=== PATIENT | female | born 1960 | race Caucasian/White ===

== ENCOUNTER 2017-11-27 10:23 | Emergency (ER) | payer MEDICARE, BC, OTHER ==
[2017-11-27 11:44] LABS: BASO # 0.1 10^3/uL (0.0-0.2); BASO % 0.9 % (0.0-1.0); EOS # 0.1 10^3/uL (0.0-0.50); EOS % 2.5 % (0.0-3.0); HEMATOCRIT 43.1 % (36.0-47.0); HEMOGLOBIN 15.3 g/dl (12.0-16.0); IMMATURE GRANULOCYTE % 0.2 % (0-3.0); LYMPH # 2.8 10^3/uL (1.5-4.5); LYMPH % 50.4 % (24.0-44.0); MEAN CORPUSCULAR HEMOGLOBIN 32.3 pg (27.0-33.0); MEAN CORPUSCULAR HGB CONC 35.5 g/dl (32.0-36.5); MEAN CORPUSCULAR VOLUME 90.9 fl (80.0-96.0); MONO # 0.4 10^3/uL (0.0-0.8); MONO % 7.1 % (0.0-5.0); NEUTROPHILS # 2.2 10^3/uL (1.8-7.7); NEUTROPHILS % 38.9 % (36.0-66.0); PLATELET COUNT, AUTOMATED 204 10^3/uL (150-450); RED BLOOD COUNT 4.74 10^6/uL (4.00-5.40); RED CELL DISTRIBUTION WIDTH 11.8 % (11.5-14.5); WHITE BLOOD COUNT 5.6 10^3/uL (4.0-10.0)
[2017-11-27] MEDS: NS 1,000 ML IV (11:45)
[2017-11-27] MEDS ORDERED: ONDANSETRON 4MG/2ML VIAL (J2405) IV (11:45)
[2017-11-27 11:56] LABS: ANION GAP 8 MEQ/L (8-16); BLOOD UREA NITROGEN 10 MG/DL (7-18); CALCIUM LEVEL 8.8 MG/DL (8.5-10.1); CARBON DIOXIDE LEVEL 26 MEQ/L (21-32); CHLORIDE LEVEL 108 MEQ/L (98-107); CPK CREATINE PHOSPHOKINASE 64 U/L (26-192); CREATININE FOR GFR 0.64 MG/DL (0.55-1.30); GLOMERULAR FILTRATION RATE > 60.0 (>51); GLUCOSE, FASTING 93 MG/DL (70-100); MB/CK RELATIVE INDEX 1.56 (< OR =4); POTASSIUM SERUM 3.8 MEQ/L (3.5-5.1); SODIUM LEVEL 142 MEQ/L (136-145); TROPONIN I < 0.02 NG/ML (< 0.10)
[2017-11-27] MEDS: KETOROLAC 30 MG/ML VIAL (J1885) IV (12:13)
[2017-11-27 12:25] LABS: INFLUENZA A AMPLIFICATION NEGATIVE (NEGATIVE); INFLUENZA B AMPLIFICATION NEGATIVE (NEGATIVE)
== END 2017-11-27 13:22 | disposition home or self-care (01) ==
LOC: M ED 10:23
DX: M79.1 Myalgia (principal); B09 Unspecified viral infection characterized by skin and mucous membrane lesions; E06.2 Chronic thyroiditis with transient thyrotoxicosis; F41.9 Anxiety disorder, unspecified; K58.9 Irritable bowel syndrome, unspecified; Z79.01 Long term (current) use of anticoagulants; Z79.82 Long term (current) use of aspirin; Z79.899 Other long term (current) drug therapy; Z88.5 Allergy status to narcotic agent; Z87.42 Personal history of other diseases of the female genital tract; Z98.890 Other specified postprocedural states; Z95.5 Presence of coronary angioplasty implant and graft; Z87.891 Personal history of nicotine dependence
CPT/HCPCS: J1885

== ENCOUNTER 2017-12-03 17:20 | Emergency (ER) | payer MEDICARE, BC, OTHER ==
[2017-12-03 18:14] LABS: BASO % 0.6 % (0.0-1.0); EOS # 0.1 10^3/uL (0.0-0.50); HEMOGLOBIN 14.1 g/dl (12.0-16.0); IMMATURE GRANULOCYTE % 0.1 % (0-3.0); LYMPH % 43.7 % (24.0-44.0); MEAN CORPUSCULAR HGB CONC 35.3 g/dl (32.0-36.5); MEAN CORPUSCULAR VOLUME 90.9 fl (80.0-96.0); MONO # 0.4 10^3/uL (0.0-0.8); MONO % 6.1 % (0.0-5.0); NEUTROPHILS # 3.3 10^3/uL (1.8-7.7); NEUTROPHILS % 48.5 % (36.0-66.0); PLATELET COUNT, AUTOMATED 216 10^3/uL (150-450); RED CELL DISTRIBUTION WIDTH 11.7 % (11.5-14.5); WHITE BLOOD COUNT 6.8 10^3/uL (4.0-10.0)
[2017-12-03] MEDS: NITROGLYCERIN 0.4 MG SUBL TABLET SL ×2 (18:23→18:33)
[2017-12-03 18:39] LABS: ALBUMIN/GLOBULIN RATIO 1.18 (1.00-1.93); ALKALINE PHOSPHATASE 86 U/L (45-117); ALT/SGPT 30 U/L (12-78); ANION GAP 8 MEQ/L (8-16); AST/SGOT 18 U/L (7-37); BILIRUBIN,DIRECT < 0.1 MG/DL (0.0-0.2); BILIRUBIN,TOTAL 0.3 MG/DL (0.2-1.0); BLOOD UREA NITROGEN 11 MG/DL (7-18); CALCIUM LEVEL 8.4 MG/DL (8.5-10.1); CARBON DIOXIDE LEVEL 27 MEQ/L (21-32); CHLORIDE LEVEL 106 MEQ/L (98-107); CPK CREATINE PHOSPHOKINASE 64 U/L (26-192); CREATININE FOR GFR 0.68 MG/DL (0.55-1.30); GLOMERULAR FILTRATION RATE > 60.0 (>51); GLUCOSE, FASTING 96 MG/DL (70-100); LIPASE 239 U/L (73-393); MB/CK RELATIVE INDEX 1.56 (< OR =4); POTASSIUM SERUM 3.6 MEQ/L (3.5-5.1); SODIUM LEVEL 141 MEQ/L (136-145); TOTAL PROTEIN 7.4 GM/DL (6.4-8.2); TROPONIN I 0.02 NG/ML (< 0.10)
[2017-12-03 19:02] LABS: INR 1.13; PROTHROMBIN TIME 14.7 SECONDS (12.4-14.5)
[2017-12-03 19:03] LABS: PARTIAL THROMBOPLASTIN TIME 34.2 SECONDS (26.8-37.9)
[2017-12-03] MEDS ORDERED: ISOVUE-370 76% 100ML VIAL (Q9967) As Ordered (19:06)
[2017-12-04 00:16] LABS: CPK CREATINE PHOSPHOKINASE 61 U/L (26-192); TROPONIN I 0.05 NG/ML (< 0.10)
[2017-12-04] MEDS: MORPHINE 4 MG/ML 1ML VIAL (J2270) IV (00:16)
[2017-12-04 00:17] LABS: MB/CK RELATIVE INDEX 1.63 (< OR =4)
[2017-12-04] MEDS: CLOPIDOGREL 300 MG TAB (PLAVIX) PO (00:34)
[2017-12-04] MEDS: HEPARIN SOD (PORCINE) 5000 UNITS/ML VIAL IV (00:34)
[2017-12-04] MEDS: HEPARIN DRIP 25,000 UNITS in APPROPRIATE DILUENT 1 EA IV (00:35)
[2017-12-04] MEDS ORDERED: MORPHINE 4 MG/ML 1ML VIAL (J2270) IV (00:45)
[2017-12-04] MEDS ORDERED: NITROGLYCERIN 2% OINT 1 GM *U/D* PKT TOP (01:00)
== END 2017-12-04 01:29 | disposition short-term general hospital (02) ==
LOC: M ED 17:20
DX: I20.0 Unstable angina (principal); I10 Essential (primary) hypertension; G40.909 Epilepsy, unspecified, not intractable, without status epilepticus; Z79.890 Hormone replacement therapy; Z79.82 Long term (current) use of aspirin; Z79.01 Long term (current) use of anticoagulants; Z79.899 Other long term (current) drug therapy; Z88.8 Allergy status to other drugs, medicaments and biological substances; Z95.5 Presence of coronary angioplasty implant and graft; Z98.890 Other specified postprocedural states; Z87.891 Personal history of nicotine dependence; Z85.828 Personal history of other malignant neoplasm of skin
CPT/HCPCS: J2270

== ENCOUNTER 2019-01-06 18:19 | Emergency (ER) | payer MEDICARE, BC, OTHER ==
[~2019-01-06] VITALS: Ht 160 cm; Wt 53.0 kg
[2019-01-06 18:19] VITALS: BP 134/76
[~2019-01-06 18:19] MED LIST: /AMIO20TA OR; ALBUTEROL INH; AMIT25TA PO; ASPI81TA45 OR; ASPI81TA85 PO; CELE20TA PO; COLA100C2 OR; CRES20TA PO; FAMO20TA PO; HYDR-3363 PO; ISOS120T4 PO; LORA1TAB OR; METO-346 PO; METOPROLOL TARTATE; MIRALEX OR; MULTIVIT OR; NEUR100C PO; OMEP20TA7 OR; PLAV1TAB2 PO; PLAV75TA2 OR; PRAV20TA2 OR; RANE1000 PO; TRAM50TA2 PO; VITMTA PO; [UNRECOGNIZED DRUG - CODE] PO; ferrous gluconate; ranexa; symbicort
[2019-01-06] MEDS ORDERED: OXYC1TAB15 PO (19:04)
[2019-01-06] MEDS ORDERED: CAPS0.022 TOP (19:04)
[2019-01-06] MEDS ORDERED: GABA-843 PO (19:04)
[2019-01-06] MEDS ORDERED: VALA1TAB2 PO (19:04)
[2019-01-06] MEDS ORDERED: valACYclovir HCL 500 MG TAB PO ONE (19:15)
[2019-01-06] MEDS ORDERED: PERCOCET 5MG/325MG TAB PO ONE (19:15)
[2019-01-06] MEDS ORDERED: GABAPENTIN 300 MG CAP PO ONE (19:15)
== END 2019-01-06 19:27 | disposition home or self-care (01) ==
LOC: M ED 18:19
DX: M79.2 Neuralgia and neuritis, unspecified (principal); R51 Headache; L98.9 Disorder of the skin and subcutaneous tissue, unspecified; E06.3 Autoimmune thyroiditis; K21.9 Gastro-esophageal reflux disease without esophagitis; K58.9 Irritable bowel syndrome, unspecified; I25.10 Atherosclerotic heart disease of native coronary artery without angina pectoris; R56.9 Unspecified convulsions; Z95.1 Presence of aortocoronary bypass graft; Z79.899 Other long term (current) drug therapy; Z79.82 Long term (current) use of aspirin; Z88.6 Allergy status to analgesic agent; F17.210 Nicotine dependence, cigarettes, uncomplicated

== ENCOUNTER 2019-04-21 18:27 | Emergency (ER) | payer MEDICARE, BC, OTHER ==
[~2019-04-21] VITALS: Ht 160 cm; Wt 53.0 kg
[~2019-04-21 18:27] MED LIST changes: -/AMIO20TA OR; +AMIO1TAB OR; +CAPS0.022 TOP; -CRES20TA PO; +CRES20TA2 PO; +GABA-843 PO; -ISOS120T4 PO; +ISOS120T7 PO; +OXYC1TAB15 PO; +VALA1TAB2 PO; +[UNRECOGNIZED DRUG - CODE] PO; -[UNRECOGNIZED DRUG - CODE] PO
[2019-04-21] MEDS ORDERED: NS 1,000 ML IV SCH (18:32)
[2019-04-21] MEDS ORDERED: NITROGLYCERIN 0.4 MG SUBL TABLET SL PRN (18:45)
[2019-04-21 18:54] LABS: BASO # 0.2 10^3/uL (0.0-0.2); BASO % 2.4 % (0.0-1.0); EOS # 0.2 10^3/uL (0.0-0.50); EOS % 2.1 % (0.0-3.0); HEMATOCRIT 37.2 % (36.0-47.0); HEMOGLOBIN 13.5 g/dl (12.0-15.5); LYMPH # 4.3 10^3/uL (1.5-4.5); LYMPH % 48.9 % (24.0-44.0); MEAN CORPUSCULAR HGB CONC 36.3 g/dl (32.0-36.5); MEAN CORPUSCULAR VOLUME 96.4 fl (80.0-96.0); MONO # 0.6 10^3/uL (0.0-0.8); MONO % 6.3 % (0.0-5.0); NEUTROPHILS # 3.5 10^3/uL (1.8-7.7); NEUTROPHILS % 40.2 % (36.0-66.0); PLATELET COUNT, AUTOMATED 224 10^3/uL (150-450); RED BLOOD COUNT 3.86 10^6/uL (4.00-5.40); WHITE BLOOD COUNT 8.8 10^3/uL (4.0-10.0)
[2019-04-21 18:59] VITALS: BP 109/70
[2019-04-21 18:59] LABS: PARTIAL THROMBOPLASTIN TIME 36.8 SECONDS (25.0-38.4)
[2019-04-21 19:02] LABS: INR 1.12; PROTHROMBIN TIME 14.1 SECONDS (11.8-14.0)
[2019-04-21 19:19] LABS: ALBUMIN 3.8 GM/DL (3.2-5.2); ALT/SGPT 32 U/L (12-78); BILIRUBIN,DIRECT 0.1 MG/DL (0.0-0.2); BILIRUBIN,TOTAL 0.3 MG/DL (0.2-1.0); BLOOD UREA NITROGEN 13 MG/DL (7-18); CALCIUM LEVEL 8.7 MG/DL (8.5-10.1); CARBON DIOXIDE LEVEL 27 MEQ/L (21-32); CHLORIDE LEVEL 107 MEQ/L (98-107); CK-MB VALUE MASS 1.6 NG/ML (<3.6); CPK CREATINE PHOSPHOKINASE 110 U/L (26-192); CREATININE FOR GFR 0.82 MG/DL (0.55-1.30); GLOMERULAR FILTRATION RATE > 60.0 (>51); GLUCOSE, FASTING 85 MG/DL (70-100); MB/CK RELATIVE INDEX 1.45 (< OR =4); NT-PRO BNP 164 PG/ML (<125); POTASSIUM SERUM 3.8 MEQ/L (3.5-5.1); SODIUM LEVEL 140 MEQ/L (136-145); TOTAL PROTEIN 6.9 GM/DL (6.4-8.2); TROPONIN I < 0.02 NG/ML (< 0.10)
--- NOTE | 2019-04-21 19:34 | REP ---
Clinical: Acute chest pain . Comparison: 12/03/2017 . Findings: The mediastinum and cardiac silhouette are stable and within normal limits for portable technique. Evidence for sternotomy and CABG again noted. The lung fernandez are clear without acute consolidation, effusion, or pneumothorax. Skeletal structures are intact. Impression: No acute cardiopulmonary process appreciated. Electronically Signed by Samuel Hayden MD 04/21/2019 07:25 P
[2019-04-21 19:44] LABS: D-DIMER QUANT 420.3 ng/ml (<500)
[2019-04-21 22:31] LABS: CK-MB VALUE MASS 1.1 NG/ML (<3.6); CPK CREATINE PHOSPHOKINASE 96 U/L (26-192); MB/CK RELATIVE INDEX 1.15 (< OR =4); TROPONIN I < 0.02 NG/ML (< 0.10)
[2019-04-21 22:45] VITALS: BP 104/61
--- NOTE | 2019-04-22 15:37 | ECGEPIP ---
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
== END 2019-04-21 22:56 | disposition home or self-care (01) ==
LOC: M ED 18:27
DX: I20.8 Other forms of angina pectoris (principal); I10 Essential (primary) hypertension; Z95.1 Presence of aortocoronary bypass graft; Z95.5 Presence of coronary angioplasty implant and graft; Z79.899 Other long term (current) drug therapy; Z79.82 Long term (current) use of aspirin; Z88.4 Allergy status to anesthetic agent; F17.210 Nicotine dependence, cigarettes, uncomplicated

== ENCOUNTER → 2019-09-03 | Outpatient (CLI) | payer MEDICARE, BC, OTHER ==
--- NOTE | 2019-09-03 11:31 | REP ---
NUCLEAR GASTRIC EMPTYING SCAN: Following the oral administration of 1.1 millicuries technetium 99m sulfur colloid in two scrambled eggs and 2 ounces of water, multiple images of the upper abdomen are performed in the anterior and posterior projections. At the end of 90 minutes 23% of the ingested activity has emptied from the stomach. T-1/2 is 205 minutes. Normal t-1/2 is 90 minutes. IMPRESSION: Mild to moderate delay in gastric emptying. Electronically Signed by Curry Coronado MD 09/04/2019 08:39 P
== END ==
LOC: M RAD 08:12
PROVIDERS: ATTEND Internal Medicine Gastroenterology
DX: R12 Heartburn (principal); R11.0 Nausea; K31.84 Gastroparesis
CPT/HCPCS: 78264; A9541

== ENCOUNTER → 2019-09-04 | Outpatient (CLI) | payer MEDICARE, BC, OTHER ==
[~2019-09-04] MED LIST changes: +GASTROGRAFIN SOLUTION 30ML (Q9963) As Ordered ONE; +ISOVUE-370 76% 100ML VIAL (Q9967) As Ordered ONE
--- NOTE | 2019-09-04 19:33 | REP ---
CT abdomen and pelvis without and with IV contrast: With oral contrast. History: Abnormal weight loss. No comparison abdomen CT study. CT contrast dose: 100 mL of intravenous Isovue [address] findings: Digital preliminary learning and development associate radiograph is unremarkable. Lung bases are clear. The liver is hyperdense diffusely relative to the spleen on the noncontrast study. This is consistent with increased hepatic iron deposition hemochromatosis. This is slightly more prominent than on the [address] study images from the chest. No focal hepatic or splenic lesion is seen. No abnormalities noted in the gallbladder. No adrenal lesion is observed on either side. The spleen is homogeneous in texture and normal in size. No pancreatic abnormality is seen. The kidneys enhance symmetrically. They are morphologically intact. No hydronephrosis is seen. No calculus or mass is observed. Vascular calcification is seen in a normal caliber aorta. Small and large intestinal bowel loops are unremarkable in the abdomen and pelvis. No uterine or adnexal pathology is seen. Urinary bladder samaniego are intact. No abdominal wall defect is seen. Impression: No acute intra-abdominal abnormality. Diffusely somewhat increased attenuation throughout the liver on noncontrast study. This can be seen with iron deposition disease, copper deposition disease, and drugs such as amiodarone. It is not acute. Electronically Signed by Lucas Jacques MD 09/05/2019 09:41 A
== END ==
LOC: M RAD 11:49
PROVIDERS: ATTEND Internal Medicine Gastroenterology
DX: R63.4 Abnormal weight loss (principal)
CPT/HCPCS: 74178; Q9963; Q9967

== ENCOUNTER → 2019-09-27 | Outpatient (CLI) | payer MEDICARE, BC, OTHER ==
[~2019-09-27] MED LIST changes: -GASTROGRAFIN SOLUTION 30ML (Q9963) As Ordered ONE; -ISOVUE-370 76% 100ML VIAL (Q9967) As Ordered ONE; -VALA1TAB2 PO; +VALA1TAB64 PO
[2019-09-27 14:54] LABS: ALBUMIN 4.2 GM/DL (3.2-5.2); BILIRUBIN,DIRECT 0.1 MG/DL (0.0-0.2); BILIRUBIN,TOTAL 0.4 MG/DL (0.2-1.0); PERCENT SATURATION 39.1 % (13.2-45.0); TOTAL PROTEIN 7.7 GM/DL (6.4-8.2)
== END ==
LOC: M PLALAB 09:21
PROVIDERS: ATTEND Internal Medicine Gastroenterology
DX: E83.10 Disorder of iron metabolism, unspecified (principal)

== ENCOUNTER 2019-11-02 11:09 | Day surgery (SDC) | payer MEDICARE, BC, OTHER ==
[~2019-11-02] VITALS: Ht 160 cm; Wt 51.3 kg
[~2019-11-02 11:09] MED LIST changes: +LINZ290C PO; +METO1TAB87 PO; +NITR0.4S14; +NS 1,000 ML IV ONE
[2019-11-02] MEDS ORDERED: METOPROLOL TART 25 MG TABLET PO ONE (12:00)
[2019-11-02] MEDS ORDERED: METOPROLOL TART 12.5 MG PER 1/2 TAB PO ONE (12:15)
[2019-11-02] MEDS ORDERED: ESMOLOL INJ 100MG/10ML VIAL As Ordered ONE (12:33)
[2019-11-02] MEDS ORDERED: LIDOCAINE 2% INJ 100 MG/5 ML SDV (FOR ANES.) As Ordered ONE (12:33)
[2019-11-02] MEDS ORDERED: propofoL 200 MG/20 ML VIAL As Ordered ONE ×2 (12:33→12:50)
--- NOTE | 2019-11-02 12:53 | ROOR ---
Patient Name: Wendy Oslulivan Procedure Date: 11/02/2019 12:29 PM Date of : 1960 Age: 58 Room: [facility] Gender: Female Note Status: Finalized Procedure: Upper GI endoscopy Indications: Gastroparesis, Nausea Providers: Ayaan GARCIA MD Referring MD: JOSHUA RIZO MD Requesting Provider: Medicines: Monitored Anesthesia Care Complications: No immediate complications. Procedure: Pre-Anesthesia Assessment: - The heart rate, respiratory rate, oxygen saturations, blood pressure, adequacy of pulmonary ventilation, and response to care were monitored throughout the procedure. The Endoscope was introduced through the mouth, and advanced to the second part of duodenum. The upper GI endoscopy was accomplished without difficulty. The patient tolerated the procedure well. Findings: The examined esophagus was normal. A single 12 mm submucosal papule (nodule) with no stigmata of recent bleeding was found in the gastric antrum. Biopsies were taken with a cold forceps for histology. The exam of the stomach was otherwise normal. The examined duodenum was normal. Impression: - Normal esophagus. - A single submucosal papule (nodule) found in the stomach. (review of images from last endoscopy 2014, show this submucosal nodule possibly increased in size). Biopsied. - Normal examined duodenum. Recommendation: - Gastroparesis diet: - Eat smaller, more frequent meals throughout the day. - Low fat diet. - Liquid/soft foods are tolerated better than solid foods. - Low fiber/well cooked vegetables are tolerated better than high fiber/fibrous foods/raw vegetables. - Avoid medications that inhibit gastric/intestinal motility such as narcotic medications. - -Consideration will be given to a EGD/EUS referral. Await biopsy. Ayaan Garcia MD Ayaan GARCIA MD 11/02/2019 12:52:34 PM Electronically signed by Ayaan GARCIA MD Number of Addenda: 0 Note Initiated On: 11/02/2019 12:29 PM Estimated Blood Loss: Estimated blood loss: none.
--- NOTE | 2019-11-02 13:14 | ROOR ---
Patient Name: Wendy Osullivan Procedure Date: 11/02/2019 12:30 PM Date of : 1960 Age: 58 Room: [facility] Gender: Female Note Status: Finalized Procedure: Colonoscopy Indications: Constipation, Weight loss Providers: Ayaan GARCIA MD Referring MD: JOSHUA RIZO MD Requesting Provider: Medicines: Monitored Anesthesia Care Complications: No immediate complications. Procedure: Pre-Anesthesia Assessment: - The heart rate, respiratory rate, oxygen saturations, blood pressure, adequacy of pulmonary ventilation, and response to care were monitored throughout the procedure. The Colonoscope was introduced through the anus and advanced to 5 cm into the ileum. The colonoscopy was performed without difficulty. The patient tolerated the procedure well. The quality of the bowel preparation was good. Findings: The perianal and digital rectal examinations were normal. A 5 mm polyp was found in the ascending colon. The polyp was sessile. The polyp was removed with a cold snare. Resection and retrieval were complete. Internal hemorrhoids were found during retroflexion. The hemorrhoids were medium-sized. Anal papilla(e) were hypertrophied. The exam was otherwise normal throughout the examined colon. Impression: - One 5 mm polyp in the ascending colon, removed with a cold snare. Resected and retrieved. - Internal hemorrhoids. - The colon is otherwise normal. Recommendation: - Use Linzess (linaclotide) 290 mcg PO daily. - To increase the effects of Linzess, you can try taking linzess WITH a meal (instead of on an empty stomach). - Consideration may also be given to the addition of miralax 17 gm once a day along with linzess. Ayaan Garcia MD Ayaan GARCIA MD 11/02/2019 1:13:58 PM Electronically signed by Ayaan GARCIA MD Number of Addenda: 0 Note Initiated On: 11/02/2019 12:30 PM Estimated Blood Loss: Estimated blood loss: none.
[2019-11-02 13:45] VITALS: BP 117/64
== END 2019-11-02 14:00 | disposition home or self-care (01) ==
LOC: M OPP 11:09
PROVIDERS: ATTEND Internal Medicine Gastroenterology
DX: D12.2 Benign neoplasm of ascending colon (principal); K64.8 Other hemorrhoids; K62.89 Other specified diseases of anus and rectum; K59.00 Constipation, unspecified; K31.89 Other diseases of stomach and duodenum; K31.84 Gastroparesis; R11.0 Nausea; R63.4 Abnormal weight loss; F17.210 Nicotine dependence, cigarettes, uncomplicated; Z79.82 Long term (current) use of aspirin; Z79.899 Other long term (current) drug therapy; Z88.4 Allergy status to anesthetic agent

== ENCOUNTER 2020-03-11 11:01 | Emergency (ER) | payer MEDICARE, BC, OTHER ==
[~2020-03-11] VITALS: Ht 160 cm; Wt 50.9 kg
[~2020-03-11 11:01] MED LIST changes: -NS 1,000 ML IV ONE; +VALA1TAB5 PO; -VALA1TAB64 PO
[2020-03-11] MEDS ORDERED: OMEP-218 (11:16)
[2020-03-11 11:30] LABS: BASO # 0.2 10^3/uL (0.0-0.2); BASO % 2.3 % (0.0-1.0); EOS # 0.1 10^3/uL (0.0-0.5); EOS % 1.9 % (0.0-3.0); HEMATOCRIT 40.5 % (36.0-47.0); HEMOGLOBIN 13.9 g/dl (12.0-15.5); LYMPH # 2.1 10^3/uL (1.5-5.0); LYMPH % 27.4 % (24.0-44.0); MEAN CORPUSCULAR HEMOGLOBIN 33.3 pg (27.0-33.0); MEAN CORPUSCULAR HGB CONC 34.3 g/dl (32.0-36.5); MEAN CORPUSCULAR VOLUME 97.1 fl (80.0-96.0); MONO # 0.6 10^3/uL (0.0-0.8); MONO % 8.1 % (0.0-5.0); NEUTROPHILS # 4.5 10^3/uL (1.5-8.5); NEUTROPHILS % 60.2 % (36.0-66.0); PLATELET COUNT, AUTOMATED 257 10^3/uL (150-450); RED BLOOD COUNT 4.17 10^6/uL (4.00-5.40); WHITE BLOOD COUNT 7.5 10^3/uL (4.0-10.0)
[2020-03-11 11:41] LABS: INR 1.18; PROTHROMBIN TIME 14.7 SECONDS (11.8-14.0)
[2020-03-11 11:43] LABS: PARTIAL THROMBOPLASTIN TIME 30.5 SECONDS (25.0-38.4)
[2020-03-11 12:00] LABS: CK-MB VALUE MASS 5.6 NG/ML (<3.6); CPK CREATINE PHOSPHOKINASE 319 U/L (26-192); MB/CK RELATIVE INDEX 1.76 (< OR =4); TROPONIN I < 0.02 NG/ML (< 0.10)
--- NOTE | 2020-03-11 14:10 | REP ---
MRI brain without contrast: History: Visual problems. Rule out occipital infarction. Comparison study: Comparison is made with today's CT study. Technique: Axial and sagittal imaging planes are utilized for T1 and T2-weighted scans. Sequences include spin-echo, fast spin echo, FLAIR, and diffusion weighted sequences. MRI findings: No bony calvarial lesion is seen. Craniocervical junction and upper cervical cord are normal in appearance. There is no MR evidence of significant paranasal sinus disease. No intraorbital abnormality is seen. The lateral, third, and fourth ventricles are normal in size and position. Coronado-white differentiation pattern is intact above and below the tentorium. There is no evidence of intracranial hemorrhage. No mass, infarction, extra-axial fluid collection or midline shift is seen. No abnormal white matter lesion is seen. There are minimal periventricular white matter changes consistent with small vessel disease on FLAIR images. Impression: Normal periventricular white matter small vessel changes. Otherwise negative noncontrast brain MRI study. Electronically Signed by Lucas Jacques MD 03/11/2020 02:03 P
--- NOTE | 2020-03-11 14:32 | REP ---
CT BRAIN WITHOUT CONTRAST: HISTORY: Stroke symptoms. Comparison head CT study April 20, 2008. CT FINDINGS: Preliminary digital civil engineering drafter radiograph is unremarkable. The bony calvarium is intact on bone window settings. Visualized paranasal sinuses are clear. There is mild distal internal carotid artery vascular calcification. On soft tissue window settings, the lateral, third, fourth ventricles are normal in size and position. Coronado/white differentiation pattern is normal above below the tentorium. There is no evidence of intracranial hemorrhage. No extra-axial fluid collection is seen. There is no evidence of acute infarction. No mass or midline shift. IMPRESSION: There is some vascular calcification in the distal internal carotid arteries. Otherwise unremarkable CT brain without contrast. Electronically Signed by Lucas Jacques MD 03/11/2020 05:59 P
[2020-03-11 14:40] VITALS: BP 111/62
--- NOTE | 2020-03-11 14:45 | REP ---
PORTABLE CHEST X-RAY: Single view. HISTORY: CVA. COMPARISON CHEST X-RAY: April 21, 2019. FINDINGS: The patient is status post prior median sternotomy. Monitoring electrodes overlie the chest. There is a granulomatous calcification in the left base. The heart is not enlarged. Pleural angles are sharp. Lung fernandez are clear. Pulmonary vasculature is not increased. IMPRESSION: No active disease. Electronically Signed by Lucas Jacques MD 03/11/2020 06:00 P
--- NOTE | 2020-03-11 18:48 | ECGEPIP ---
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
== END 2020-03-11 14:47 | disposition home or self-care (01) ==
LOC: M ED 11:01
DX: S06.0X0A Concussion without loss of consciousness, initial encounter (principal); W01.0XXA Fall on same level from slipping, tripping and stumbling without subsequent striking against object, initial encounter; Y92.008 Other place in unspecified non-institutional (private) residence as the place of occurrence of the external cause; I10 Essential (primary) hypertension; E78.00 Pure hypercholesterolemia, unspecified; K21.9 Gastro-esophageal reflux disease without esophagitis; G62.9 Polyneuropathy, unspecified; B02.9 Zoster without complications; Z79.899 Other long term (current) drug therapy; Z79.82 Long term (current) use of aspirin; Z79.01 Long term (current) use of anticoagulants; Z88.6 Allergy status to analgesic agent; Z87.891 Personal history of nicotine dependence

== ENCOUNTER 2020-04-14 17:22 | Emergency (ER) | payer MEDICARE, BC, OTHER ==
[~2020-04-14] VITALS: Ht 160 cm; Wt 48.7 kg
[~2020-04-14 17:22] MED LIST changes: +OMEP-218
--- NOTE | 2020-04-14 18:06 | REPVR ---
PROCEDURE INFORMATION: Exam: CT Head Without Contrast Exam date and time: 04/14/2020 5:44 PM Age: 59 years old Clinical indication: Injury or trauma; Fall; Initial encounter; Blunt trauma (contusions or hematomas); Consciousness not specified TECHNIQUE: Imaging protocol: Computed tomography of the head without contrast. Radiation optimization: All CT scans at this facility use at least one of these dose optimization techniques: automated exposure control; mA and/or kV adjustment per patient size (includes targeted exams where dose is matched to clinical indication); or iterative reconstruction. COMPARISON: CT Head without contrast 03/11/2020 11:13 AM FINDINGS: Brain: Normal. No hemorrhage. Unremarkable white matter. No mass effect. Ventricles: Normal. No ventriculomegaly. Bones/joints: Unremarkable. No acute fracture. Sinuses: Visualized sinuses are unremarkable. No fluid levels. Mastoid air cells: Visualized mastoid air cells are well aerated. Soft tissues: Unremarkable. IMPRESSION: No acute intracranial abnormality. Electronically signed by: Shaan Abbott On 04/14/2020 18:05:54 PM
[2020-04-14 18:41] VITALS: BP 122/65
== END 2020-04-14 18:43 | disposition home or self-care (01) ==
LOC: M ED 17:22
DX: S00.03XA Contusion of scalp, initial encounter (principal); W22.8XXA Striking against or struck by other objects, initial encounter; Y92.002 Bathroom of unspecified non-institutional (private) residence as the place of occurrence of the external cause; Y93.9 Activity, unspecified; Y99.9 Unspecified external cause status; R11.10 Vomiting, unspecified; Z79.01 Long term (current) use of anticoagulants; Z79.82 Long term (current) use of aspirin; Z98.61 Coronary angioplasty status

== ENCOUNTER → 2020-06-05 | Outpatient (CLI) | payer MEDICARE, BC, OTHER ==
[~2020-06-05] MED LIST changes: -ASPI81TA85 PO; +ASPI81TA86 PO
--- NOTE | 2020-06-13 08:44 | REP ---
RIGHT UPPER QUADRANT SONOGRAPHY HISTORY: Right upper quadrant pain. COMPARISON: Made with CT study from 09/04/2019. FINDINGS: Scanning through the right upper quadrant of the abdomen demonstrates a normal size thin walled gallbladder without evidence of stone or polyp. Common bile duct is normal measuring 0.3 cm in greatest diameter. There is a 1.0 cm hypoechoic nodule in the right lobe of the liver consistent with hemangioma. This appears to be visible on the 09/04/2019 CT images and is unchanged. No other focal liver lesion is seen. No biliary duct dilatation is observed. The liver is not enlarged. There is no evidence of ascites or right renal abnormality. The right kidney measures 10.2 x 4.2 x 3.7 cm. IMPRESSION: Small 1 cm benign hemangioma in the right lobe of the liver. Otherwise, negative right upper quadrant sonogram. MTDD
--- NOTE | 2020-06-13 08:46 | REP ---
HEPATOBILIARY SCAN WITH GALLBLADDER EJECTION FRACTION HISTORY: Right upper quadrant pain. Other specified diseases of the gallbladder. TECHNIQUE: 6.6 mCi of Technetium-99m mebrofenin is injected and sequential five minute images are obtained of the right upper quadrant for a 60 minute interval. At 65 minutes, the patient ingested 8 ounces of Ensure and an additional 60 minutes of imaging is acquired with regions of interest drawn and plotted around the gallbladder. SCINTIGRAPHIC FINDINGS: The initial hepatocellular parenchymal uptake phase is normal. Intrahepatic and gallbladder labeling are first visualized on the 10 minute image. Subsequent images demonstrate washout from the liver parenchymal into the gallbladder and small intestine. The gallbladder ejection fraction is 76%, which is normal. IMPRESSION: Normal hepatobiliary scintigraphy with gallbladder ejection fraction. MTDD
== END ==
LOC: M RAD 08:24
PROVIDERS: ATTEND Internal Medicine Gastroenterology
DX: D18.03 Hemangioma of intra-abdominal structures (principal); K82.8 Other specified diseases of gallbladder; R10.11 Right upper quadrant pain
CPT/HCPCS: 76705; 78227; A9537

== ENCOUNTER → 2020-06-17 | Outpatient (CLI) | payer MEDICARE, BC, OTHER ==
[2020-06-17 14:21] LABS: FREE T4 0.86 NG/DL (0.76-1.46); THYROID STIMULATING HORMONE 1.6 uIU/ML (0.358-3.740)
== END ==
LOC: M LAB 12:34
PROVIDERS: ATTEND Internal Medicine Endocrinology, Diabetes & Metabolism
DX: E03.8 Other specified hypothyroidism (principal)

== ENCOUNTER 2020-09-06 21:08 | Emergency (ER) | payer MEDICARE, BC, OTHER ==
[~2020-09-06] VITALS: Ht 160 cm; Wt 47.5 kg
[2020-09-06] MEDS ORDERED: TRAZ-252 PO (21:17)
[2020-09-06] MEDS ORDERED: COLA100C5 PO (21:24)
[2020-09-06 21:52] LABS: BASO # 0.2 10^3/uL (0.0-0.2); BASO % 2.3 % (0.0-1.0); EOS # 0.1 10^3/uL (0.0-0.5); EOS % 1.9 % (0.0-3.0); HEMATOCRIT 36.8 % (36.0-47.0); HEMOGLOBIN 12.7 g/dl (12.0-15.5); LYMPH # 3.5 10^3/uL (1.5-5.0); LYMPH % 47.8 % (24.0-44.0); MEAN CORPUSCULAR HEMOGLOBIN 31.9 pg (27.0-33.0); MEAN CORPUSCULAR HGB CONC 34.5 g/dl (32.0-36.5); MEAN CORPUSCULAR VOLUME 92.5 fl (80.0-96.0); MONO # 0.6 10^3/uL (0.0-0.8); MONO % 7.8 % (0.0-5.0); NEUTROPHILS % 40.1 % (36.0-66.0); PLATELET COUNT, AUTOMATED 259 10^3/uL (150-450); RED BLOOD COUNT 3.98 10^6/uL (4.00-5.40); WHITE BLOOD COUNT 7.4 10^3/uL (4.0-10.0)
[2020-09-06] MEDS ORDERED: METHOCARBAMOL 1,000 MG/10 ML VIAL (J2800) IV ONE (22:00)
[2020-09-06] MEDS ORDERED: NS 1,000 ML IV ONE (22:00)
[2020-09-06 22:11] LABS: INR 1.11; PROTHROMBIN TIME 14.5 SECONDS (12.5-14.3)
[2020-09-06] MEDS ORDERED: ISOVUE-370 76% 100ML VIAL As Ordered ONE (22:12)
[2020-09-06 22:17] LABS: ALBUMIN 3.9 GM/DL (3.2-5.2); ALT/SGPT 20 U/L (12-78); BILIRUBIN,DIRECT < 0.1 MG/DL (0.0-0.2); BILIRUBIN,TOTAL 0.3 MG/DL (0.2-1.0); CK-MB VALUE MASS 2.6 NG/ML (<3.6); CPK CREATINE PHOSPHOKINASE 120 U/L (26-192); LIPASE 1075 U/L (73-393); MB/CK RELATIVE INDEX 2.17 (< OR =4); TOTAL PROTEIN 6.7 GM/DL (6.4-8.2); TROPONIN I < 0.02 NG/ML (< 0.10)
--- NOTE | 2020-09-06 22:59 | REPVR ---
PROCEDURE INFORMATION: Exam: US Duplex Right Upper Extremity Veins, Limited Exam date and time: 09/06/2020 10:25 PM Age: 59 years old Clinical indication: Edema, localized; Upper extremity, right; Additional info: Right arm swelling TECHNIQUE: Imaging protocol: Real-time Duplex ultrasound of the Right Upper Extremity with 2-D cabrera scale, color Doppler flow and spectral waveform analysis with image documentation. Limited exam focused on the right upper extremity veins. COMPARISON: No relevant prior studies available. FINDINGS: Right deep veins: Unremarkable. Axillary and brachial veins are patent throughout without thrombus. Normal Doppler waveforms. Normal compressibility and/or augmentation response. Visualized internal jugular and subclavian veins are patent. Right superficial veins: Unremarkable. Visualized cephalic and basilic veins are patent without thrombus. Soft tissues: In the region of the discoloration in the right wrist, no sonographic abnormality is identified. IMPRESSION: No deep vein thrombosis in the veins imaged in the right upper extremity. Electronically signed by: Alexander Conrad On 09/06/2020 22:59:14 PM
--- NOTE | 2020-09-06 23:19 | REPVR ---
PROCEDURE INFORMATION: Exam: CT Abdomen And Pelvis With Contrast Exam date and time: 09/06/2020 10:36 PM Age: 59 years old Clinical indication: Back pain, elevated lipase TECHNIQUE: Imaging protocol: Computed tomography of the abdomen and pelvis with intravenous contrast. Radiation optimization: All CT scans at this facility use at least one of these dose optimization techniques: automated exposure control; mA and/or kV adjustment per patient size (includes targeted exams where dose is matched to clinical indication); or iterative reconstruction. Contrast material: ISOVUE 370; Contrast volume: 100 ml; Contrast route: INTRAVENOUS (IV); COMPARISON: CT ABD PELVIS W/O FOL BY WIT 09/04/2019 1:48 PM FINDINGS: Lungs: For details regarding the lungs, refer to the CTA chest report on 09/06/2020. Heart: For details regarding the heart, refer to the CTA chest report on 09/06/2020. Liver: The attenuation of the liver is lower compared to the spleen, which can be seen with fatty liver infiltration. No liver lesion is seen. The contour of the liver is smooth. No hepatomegaly is noted. Gallbladder and bile ducts: No calcified gallstones are noted. No gallbladder wall thickening, pericholecystic fluid, or pericholecystic inflammatory changes are identified. No dilation of the bile ducts is noted. No calcified stones are seen in the common bile duct. Pancreas: Normal. No dilation of the main pancreatic duct is noted. There is no inflammatory fat stranding around the pancreas to suggest acute pancreatitis. Spleen: The spleen is heterogeneous in appearance, which is likely secondary to the arterial timing of the contrast bolus. No splenomegaly. Adrenal glands: Normal. No adrenal mass is noted. Kidneys and ureters: The kidneys are normal in appearance. No renal lesion is noted. There are no wedge-shaped areas of low attenuation in the kidneys to suggest pyelonephritis. There is no renal abscess or perinephric fluid collection. No stones are noted in the kidneys or ureters. There is no hydronephrosis or hydroureter. Stomach and bowel: The stomach and small bowel are unremarkable. There is no evidence for a bowel obstruction, diverticulosis, diverticulitis, colitis, perforated viscus, pneumatosis intestinalis, intussusception, or volvulus. There is high-density ingested material in the distal small bowel, colon, and rectum. Appendix: The appendix has been removed. Intraperitoneal space: No free air. No ascites. No asbcess. Retroperitoneal space: No fluid collection. No mass. Vasculature: The abdominal aorta is patent, normal in caliber, and there is no dissection. The iliac arteries, common femoral arteries, renal arteries, celiac artery, superior mesenteric artery, and inferior mesenteric artery are patent. There are mild atherosclerotic calcifications. Lymph nodes: No enlarged lymph nodes. Urinary bladder: The distended urinary bladder is normal in appearance. No stones or masses are seen in the bladder. Reproductive: The reproductive organs are obscured by streak artifact from high density ingested material in the colon. Bones/joints: There is no fracture or dislocation. No suspicious osteolytic or osteoblastic lesion. There are degenerative changes involving the lumbar spine. Soft tissues: Unremarkable. No hernia. No soft tissue fluid collection. IMPRESSION: No acute findings in the abdomen or pelvis. Electronically signed by: Alexander Conrad On 09/06/2020 23:20:08 PM
--- NOTE | 2020-09-06 23:19 | REPVR ---
PROCEDURE INFORMATION: Exam: CT Angiography Chest With Contrast Exam date and time: 09/06/2020 10:36 PM Age: 59 years old Clinical indication: Back pain, R/O thoracic aortic dissection TECHNIQUE: Imaging protocol: Computed tomographic angiography of the chest with intravenous contrast. 3D rendering (Not supervised by radiologist): MIP and/or 3D reconstructed images were created by the technologist. Radiation optimization: All CT scans at this facility use at least one of these dose optimization techniques: automated exposure control; mA and/or kV adjustment per patient size (includes targeted exams where dose is matched to clinical indication); or iterative reconstruction. Contrast material: ISOVUE 370; Contrast volume: 100 ml; Contrast route: INTRAVENOUS (IV); COMPARISON: CT ANGIO CHEST 12/03/2017 7:07 PM FINDINGS: Pulmonary arteries: No pulmonary embolism. Aorta: The thoracic aorta is intact and patent. There is no thoracic aortic aneurysm, pseudoaneurysm, penetrating atherosclerotic ulcer, intramural hematoma, or dissection. There are mild atherosclerotic calcifications. Great vessels off aortic arch: There is mild noncalcified atherosclerotic plaque in the proximal portion of the left subclavian artery. The brachiocephalic artery, right subclavian artery, and imaged proximal portions common carotid arteries are patent. Tracheobronchial tree: There are mild secretions in the trachea. Lungs: There is a 3 mm juxtapleural nodule along the right major fissure, 3 mm, and 3 mm juxtapleural nodules along the left major fissure, and a 5 mm calcified granuloma in the inferior lingula, which are unchanged compared to the prior CTA chest on 12/03/2017 (images 41, 55, 70, and 72 of the axial series 502) and for which further follow-up is not recommended. There is no lung consolidation, pulmonary infarct, or mass. No emphysematous changes or interstitial lung disease is noted. Pleural space: Normal. No pneumothorax or pleural effusion. Heart: Postoperative changes are noted from a CABG. There are coronary artery calcifications. The ratio of the diameter of the right ventricle to the diameter of the left ventricle measures less than 1, which is within normal limits and there is no CT evidence for a right ventricular strain. No pericardial effusion. Mediastinal space: No mediastinal mass, fluid collection, or pneumomediastinum. Lymph nodes: No enlarged lymph nodes. Diaphragm: Intact. Bones/joints: There is no fracture or dislocation. No suspicious osteolytic or osteoblastic lesion. Intact median sternotomy suture wires are noted fixating a healed median sternotomy. There are degenerative changes and endplate spurs in the thoracic spine. Soft tissues: Unremarkable. No soft tissue fluid collection. Other findings: For details regarding the abdominal and pelvic findings, refer to the CT abdomen and pelvis report on 09/06/2020. IMPRESSION: 1. No acute findings in the chest. No pulmonary embolism. 2. No thoracic aortic aneurysm, pseudoaneurysm, intramural hematoma, penetrating atherosclerotic ulcer, or dissection. Electronically signed by: Alexander Conrad On 09/06/2020 23:19:41 PM
--- NOTE | 2020-09-06 23:22 | REPVR ---
PROCEDURE INFORMATION: Exam: US Abdomen, Limited; Right Upper Quadrant Exam date and time: 09/06/2020 10:27 PM Age: 59 years old Clinical indication: Back pain, elevated lipase TECHNIQUE: Imaging protocol: US abdomen. Real time ultrasound with image documentation. Limited exam focused on the right upper quadrant. COMPARISON: 1. Abdomen, limited US 06/05/2020 8:[address] ABD/PEL W/IV CONTRAST ONLY 09/06/2020 10:22:21 PM FINDINGS: Liver: The echogenicity of the liver is within normal limits. No liver lesion is identified from the images obtained. The contour of the liver is smooth. Gallbladder: The gallbladder is normal in appearance. No stones, masses, gallbladder wall thickening, or pericholecystic fluid are noted. No sonographic Soto's sign was reported by the distribution engineering technologist. Common bile duct: The common bile duct is normal in caliber and at the level of the maryam hepatis measures 4 mm in diameter. Pancreas: The imaged portion of the pancreas is unremarkable. Right kidney: The right kidney is normal in appearance and measures 10.8 cm in length. There is no renal cortical thinning. The renal cortical echogenicity is within normal limits. No renal lesion is seen. There is no hydronephrosis. No obvious stones are seen in the renal collecting system. Intraperitoneal space: No free fluid. IMPRESSION: No acute findings. Electronically signed by: Alexadner Conrad On 09/06/2020 23:22:10 PM
[2020-09-06] MEDS ORDERED: ROBA750T4 PO (23:42)
[2020-09-06 23:45] VITALS: BP 115/62
--- NOTE | 2020-09-07 06:39 | ECGEPIP ---
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
--- NOTE | 2020-09-07 14:37 | ED PDOC ---
Post-Departure Follow-Up dr iqbal faxed formal report of cta chest for fu Poppy Pink MD Sep 07, 2020 14:37
== END 2020-09-07 00:01 | disposition home or self-care (01) ==
LOC: M ED 21:08
DX: K85.90 Acute pancreatitis without necrosis or infection, unspecified (principal); M25.531 Pain in right wrist; R23.3 Spontaneous ecchymoses; I11.9 Hypertensive heart disease without heart failure; I25.2 Old myocardial infarction; I25.10 Atherosclerotic heart disease of native coronary artery without angina pectoris; K21.9 Gastro-esophageal reflux disease without esophagitis; Z87.19 Personal history of other diseases of the digestive system; Z87.42 Personal history of other diseases of the female genital tract; Z95.5 Presence of coronary angioplasty implant and graft; Z95.1 Presence of aortocoronary bypass graft; F17.210 Nicotine dependence, cigarettes, uncomplicated; Z88.6 Allergy status to analgesic agent; Z79.899 Other long term (current) drug therapy; Z79.02 Long term (current) use of antithrombotics/antiplatelets; Z79.82 Long term (current) use of aspirin
CPT/HCPCS: 71275; 74177; 76705; 80047; 80076; 82550; 82553; 83690; 84484; 85025; 85610; 85730; 93005; 93041; 93971; 96374; 99285; J2800; Q9967

== ENCOUNTER 2021-05-24 09:44 | Emergency (ER) | payer MEDICARE, BC, OTHER ==
[~2021-05-24] VITALS: Ht 160 cm; Wt 45.5 kg
[~2021-05-24 09:44] MED LIST changes: -AMIT25TA PO; +AMIT25TA17 PO; +COLA100C5 PO; +GABA-282 PO; -GABA-843 PO; -OXYC1TAB15 PO; +OXYC7.5T3 PO; +ROBA750T4 PO; +TRAZ-252 PO
[2021-05-24] MEDS ORDERED: PARO40TA2 (09:51)
[2021-05-24] MEDS ORDERED: AMOX875T2 (09:51)
[2021-05-24] MEDS ORDERED: PRUC2TAB (09:51)
[2021-05-24] MEDS ORDERED: MORPHINE 2 MG/ML 1ML VIAL (J2270) IV PRN (10:20)
[2021-05-24] MEDS ORDERED: ONDANSETRON 4MG/2ML VIAL IV ONE (10:25)
--- NOTE | 2021-05-24 10:41 | REP ---
INDICATION: CHEST PAIN. COMPARISON: Portable chest dated 03/11/2020. TECHNIQUE: Portable AP chest with the patient upright. FINDINGS: There is a small stable granuloma inferiorly in the left lung, unchanged. There are no focal infiltrates. The interstitium is unremarkable. There are no pleural effusions. The lung fernandez are otherwise clear. Cardiac size is normal and unchanged. Sternotomy clips and mediastinal surgical clips are unchanged. The amanda, mediastinum, and skeletal structures are unremarkable and unchanged. IMPRESSION: Essentially negative portable chest. There are chronic findings as described. <Electronically signed by Curry Palomino > 05/24/21 [id number]
[2021-05-24 10:49] LABS: BASO # 0.2 10^3/uL (0.0-0.2); BASO % 2.1 % (0.0-1.0); EOS # 0.2 10^3/uL (0.0-0.5); EOS % 2.3 % (0.0-3.0); HEMATOCRIT 41.8 % (36.0-47.0); HEMOGLOBIN 14.4 g/dl (12.0-15.5); LYMPH # 2.7 10^3/uL (1.5-5.0); MEAN CORPUSCULAR HEMOGLOBIN 32.5 pg (27.0-33.0); MEAN CORPUSCULAR HGB CONC 34.4 g/dl (32.0-36.5); MEAN CORPUSCULAR VOLUME 94.4 fl (80.0-96.0); MONO # 0.5 10^3/uL (0.0-0.8); MONO % 6.8 % (2.0-8.0); NEUTROPHILS # 4.3 10^3/uL (1.5-8.5); NEUTROPHILS % 54.7 % (36.0-66.0); PLATELET COUNT, AUTOMATED 250 10^3/uL (150-450); RED BLOOD COUNT 4.43 10^6/uL (4.00-5.40); WHITE BLOOD COUNT 7.8 10^3/uL (4.0-10.0)
[2021-05-24 11:53] LABS: ALT/SGPT 33 U/L (12-78); BILIRUBIN,DIRECT 0.1 MG/DL (0.0-0.2); BILIRUBIN,TOTAL 0.5 MG/DL (0.2-1.0); CK-MB VALUE MASS 3.1 NG/ML (<3.6); CPK CREATINE PHOSPHOKINASE 181 U/L (26-192); FREE T4 0.98 NG/DL (0.76-1.46); MB/CK RELATIVE INDEX 1.71 (< OR =4); TOTAL PROTEIN 7.5 GM/DL (6.4-8.2); TROPONIN I < 0.02 NG/ML (< 0.10)
[2021-05-24] MEDS ORDERED: MORPHINE 2 MG/ML 1ML VIAL (J2270) IV ONE (12:30)
--- NOTE | 2021-05-24 13:21 | REPVR ---
PROCEDURE INFORMATION: Exam: CT Head Without Contrast Exam date and time: 05/24/2021 11:20 AM Age: 60 years old Clinical indication: Pain; Other: Ear; Additional info: Right ear TECHNIQUE: Imaging protocol: Computed tomography of the head without contrast. Radiation optimization: All CT scans at this facility use at least one of these dose optimization techniques: automated exposure control; mA and/or kV adjustment per patient size (includes targeted exams where dose is matched to clinical indication); or iterative reconstruction. COMPARISON: CT Head without contrast 04/14/2020 5:39 PM FINDINGS: Brain: There is no acute intracranial hemorrhage. No extra-axial fluid collection. No evidence of acute infarct. [place] white differentiation is intact. There is no evidence of mass. There is no mass effect or midline shift. Cerebral ventricles: No ventriculomegaly. Paranasal sinuses: Visualized sinuses are unremarkable. No fluid levels. Mastoid air cells: No significant mastoid effusion. See CT temporal bone CT. Bones/joints: No acute fracture. Soft tissues: Unremarkable as visualized. IMPRESSION: No evidence of acute intracranial abnormality. No acute hemorrhage. No evidence of acute infarct or mass. Electronically signed by: Linn Yee On 05/24/2021 13:20:55 PM
--- NOTE | 2021-05-24 13:27 | REPVR ---
PROCEDURE INFORMATION: Exam: CT Temporal Bones Without Contrast. Exam date and time: 05/24/2021 11:20 AM Age: 60 years old Clinical indication: Pain; Other: Ear; Additional info: Right ear TECHNIQUE: Imaging protocol: Computed tomography images of the temporal bones without contrast. Radiation optimization: All CT scans at this facility use at least one of these dose optimization techniques: automated exposure control; mA and/or kV adjustment per patient size (includes targeted exams where dose is matched to clinical indication); or iterative reconstruction. COMPARISON: CT Head without contrast 04/14/2020 5:39 PM FINDINGS: Right inner ear: The inner ear structures are unremarkable. Specifically, the internal auditory canals are symmetric and unremarkable. The lu falciformis appears normal. The cochlea and vestibular system are clearly visualized and appear unremarkable. There appears to be normal development of the cochlea and the modiolus appears normal as visualized. The vestibule are semicircular canals are of normal size and configuration. There is no evidence of labyrinthitis ossificans or otospongiosis /otosclerosis. The vestibular aqueduct is unremarkable without enlargement or flaring. The cochlear aqueduct is identified. Right ossicles and middle ear: The middle ear structures are unremarkable. Specifically, the middle ear cavity is well developed and aerated and the ossicles are clearly identified. The oval windows and round windows are patent. Right external auditory canal: The external ear structures are well developed. The external ear is clear. The scutum and tympanic membrane are identified and are unremarkable. Right facial nerve canal: The facial nerve is visualized without any abnormality seen. There is bone covering over the tympanic segment as visualized. Right jugular foramen: No jugular dehiscence. Right carotid canal: No aberrant carotid canal. Right mastoid air cells: Normal. Well developed. No mastoid effusions. Left inner ear: The inner ear structures are unremarkable. Specifically, the internal auditory canals are symmetric and unremarkable. The lu falciformis appears normal. The cochlea and vestibular system are clearly visualized and appear unremarkable. There appears to be normal development of the cochlea and the modiolus appears normal as visualized. The vestibule are semicircular canals are of normal size and configuration. There is no evidence of labyrinthitis ossificans or otospongiosis /otosclerosis. The vestibular aqueduct is unremarkable without enlargement or flaring. The cochlear aqueduct is identified. Left ossicles and middle ear: The middle ear structures are unremarkable. Specifically, the middle ear cavity is well developed and aerated and the ossicles are clearly identified. The oval windows and round windows are patent. Left external auditory canal: The external ear structures are well developed. The external ear is clear. The scutum and tympanic membrane are identified and are unremarkable. Left facial nerve canal: Normal. Left jugular foramen: No jugular dehiscence. Left carotid canal: No aberrant carotid canal. Left mastoid air cells: Normal. Well developed. No mastoid effusions. Paranasal sinuses: There is small amount of mucosal thickening in maxillary and ethmoid sinuses. No air-fluid levels. Soft tissues: Unremarkable. IMPRESSION: No acute or significant findings of CT of the temporal bones. Electronically signed by: Linn eYe On 05/24/2021 13:27:26 PM
[2021-05-24] MEDS ORDERED: CEFD300CAP PO (14:10)
[2021-05-24] MEDS ORDERED: HYDR-3713 PO (14:11)
[2021-05-24 14:42] VITALS: BP 120/70
--- NOTE | 2021-05-24 20:26 | ECGEPIP ---
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
== END 2021-05-24 14:44 | disposition home or self-care (01) ==
LOC: M ED 09:44
DX: H66.93 Otitis media, unspecified, bilateral (principal); I10 Essential (primary) hypertension; I25.10 Atherosclerotic heart disease of native coronary artery without angina pectoris; E78.9 Disorder of lipoprotein metabolism, unspecified; Z95.1 Presence of aortocoronary bypass graft; Z95.5 Presence of coronary angioplasty implant and graft; Z85.820 Personal history of malignant melanoma of skin; Z79.899 Other long term (current) drug therapy; Z79.82 Long term (current) use of aspirin; Z88.4 Allergy status to anesthetic agent; F17.210 Nicotine dependence, cigarettes, uncomplicated; B37.9 Candidiasis, unspecified
CPT/HCPCS: 36415; 70450; 70480; 71045; 80047; 80076; 82550; 82553; 83605; 84439; 84443; 84484; 85025; 87070; 93005; 93041; 94760; 96374; 96375; 96376; 99285; J2270; J2405

== ENCOUNTER → 2021-05-26 | Outpatient (REF) | payer MEDICARE, BC, OTHER ==
[~2021-05-26] MED LIST changes: +AMOX875T2; +CEFD300CAP PO; +HYDR-3713 PO; +PARO40TA2; +PRUC2TAB
== END ==
LOC: M LAB REF 16:16
PROVIDERS: ATTEND Otolaryngology
DX: B37.9 Candidiasis, unspecified (principal)

== ENCOUNTER → 2024-01-06 | Outpatient (CLI) | payer MEDICARE, BC ==
[~2024-01-06] MED LIST changes: -AMIT25TA17 PO; +AMIT25TA19 PO; +CLOP75TA99 PO; +OMEP-173; -OMEP-218; -PLAV1TAB2 PO
== END ==
LOC: M RAD 13:34
PROVIDERS: ATTEND Internal Medicine Cardiovascular Disease
DX: I25.112 Atherosclerotic heart disease of native coronary artery with refractory angina pectoris (principal); M79.604 Pain in right leg; M79.605 Pain in left leg; E78.5 Hyperlipidemia, unspecified; R09.89 Other specified symptoms and signs involving the circulatory and respiratory systems

== ENCOUNTER → 2024-05-17 | Outpatient (CLI) | payer MEDICARE, BC | LOC: M PLARAD 10:49 | PROVIDERS: ATTEND Physician Assistant | DX: M48.07 Spinal stenosis, lumbosacral region (principal); M47.816 Spondylosis without myelopathy or radiculopathy, lumbar region ==

== ENCOUNTER 2025-05-15 11:31 | Emergency (ER) | payer MEDICARE, BC ==
[~2025-05-15] VITALS: Ht 160 cm; Wt 47.3 kg
[~2025-05-15 11:31] MED LIST changes: +GABA-1172 PO; -GABA-282 PO
[2025-05-15 11:35] VITALS: TEMP 97.8; O2SAT 100
[2025-05-15 13:13] LABS: BASO # 0.1 10^3/uL (0.0-0.2); BASO % 1.7 % (0.0-1.0); EOS # 0.1 10^3/uL (0.0-0.5); EOS % 0.9 % (0.0-3.0); LYMPH # 2.1 10^3/uL (1.5-5.0); LYMPH % 29.7 % (24.0-44.0); MONO # 0.5 10^3/uL (0.0-0.8); MONO % 7.4 % (2.0-8.0); NEUTROPHILS # 4.2 10^3/uL (1.5-8.5); NEUTROPHILS % 60.0 % (36.0-66.0); PLATELET COUNT, AUTOMATED 283 10^3/uL (150-450)
[2025-05-15 13:34] LABS: INR 1.04
[2025-05-15 13:36] LABS: CALCIUM LEVEL 8.7 MG/DL (8.3-10.6); CARBON DIOXIDE LEVEL 29 MMOL/L (20-31); CHLORIDE LEVEL 107 MMOL/L (98-107); CREATININE FOR GFR 0.68 MG/DL (0.55-1.30); GLOMERULAR FILTRATION RATE > 90.0 (>45); POTASSIUM SERUM 4.5 MMOL/L (3.5-5.1); SODIUM LEVEL 144 MMOL/L (136-145)
[2025-05-15 14:25] VITALS: BP 132/68
[2025-05-15] MEDS ORDERED: MUPI30CR TOP (15:24)
== END 2025-05-15 15:40 | disposition home or self-care (01) ==
LOC: M ED 11:31
DX: I70.211 Atherosclerosis of native arteries of extremities with intermittent claudication, right leg (principal); S80.811A Abrasion, right lower leg, initial encounter; S80.812A Abrasion, left lower leg, initial encounter; Y92.9 Unspecified place or not applicable; Y93.9 Activity, unspecified; Y99.9 Unspecified external cause status; F17.210 Nicotine dependence, cigarettes, uncomplicated; Z79.1 Long term (current) use of non-steroidal anti-inflammatories (NSAID); Z79.2 Long term (current) use of antibiotics; Z79.899 Other long term (current) drug therapy

== ENCOUNTER → 2025-06-12 | Outpatient (CLI) | payer MEDICARE, BC ==
[~2025-06-12] MED LIST changes: +ISOVUE-370 76% 100 ML VIAL As Ordered ONE; +MUPI30CR TOP
[2025-06-12 15:55] LABS: CREATININE FOR GFR 0.70 MG/DL (0.55-1.30); GLOMERULAR FILTRATION RATE > 90.0 (>45)
== END ==
LOC: M RAD 14:49
PROVIDERS: ATTEND Surgery Vascular Surgery
DX: I70.238 Atherosclerosis of native arteries of right leg with ulceration of other part of lower leg (principal)
CPT/HCPCS: 36415; 75635; 82565; 84520; Q9967